=== PATIENT | male | born 1950 | race Caucasian/White ===

== ENCOUNTER 2017-04-30 00:05 | Emergency (ER) | payer BC ==
[~2017-04-30] VITALS: Ht 180.3 cm; Wt 142.5 kg
[~2017-04-30 00:05] MED LIST: ERGOCALCIF50000 UNIT PO; FISH OIL 1,0001 EAC7 PO; HYDROCODON-ACE1 EAC7 PO; JALYN 0.5-0.41 EACH PO; LANSOPRAZOLE15 MG PO; LEVOTHYROXINE25 MCG PO; SAW PALMETTO500 MG PO
[2017-04-30 00:45] LABS: HEMATOCRIT 42.9 % (38.0-50.0); HEMOGLOBIN 14.6 G/DL (12.5-16.6); MCH 31.2 PG (29.0-34.0); MCV 91.7 FL (86-99); PLATELET COUNT 248 K/uL (156-360); RBC DIS.WIDTH-CV 12.7 % (11.8-14.6); RBC DIS.WIDTH-SD 42.7 % (39-53); RED BLOOD COUNT 4.68 M/uL (4.00-5.50); WHITE BLOOD COUNT 6.6 K/uL (4.1-10.2)
[2017-04-30 00:56] LABS: ALBUMIN 4.1 g/dL (3.2-4.8); CHLORIDE 102 mEq/L (99-109); POTASSIUM 4.3 mEq/L (3.7-5.4); SODIUM 136 mEq/L (136-147)
[2017-04-30 00:56] LABS: APPEARANCE CLEAR ((CLEAR)); BILIRUBIN NEGATIVE; BLOOD NEGATIVE; COLOR STRAW ((YELLOW)); GLUCOSE (STRIP) NEGATIVE; KETONES NEGATIVE; LEUKOCYTES NEGATIVE; NITRITE NEGATIVE; PROTEIN (STRIP) NEGATIVE; UCUL ADDED? NO; UROBILINOGEN 0.2 MG/DL (0.2-1.0)
[2017-04-30 00:58] LABS: GLUCOSE 152 mg/dL (70-99); TOTAL PROTEIN 7.2 g/dL (6.4-8.3)
[2017-04-30] MEDS ORDERED: ANUSOL-HC21 GM PR (00:59)
[2017-04-30] MEDS ORDERED: SENNA8.6 MG PO (00:59)
[2017-04-30] MEDS ORDERED: COLACE100 MG PO (00:59)
[2017-04-30 01:00] LABS: TOTAL BILIRUBIN 0.5 mg/dL (0.0-1.0)
[2017-04-30 01:02] LABS: ALKALINE PHOSPHATASE 64 IU/L (3-129); CREATININE 1.1 mg/dL (0.6-1.3); GFR ESTIMATE (CALCULATED) > 59 mL/min/ (58.99-99999)
[2017-04-30 01:03] LABS: UREA NITROGEN (BUN) 18 mg/dL (9-23)
[2017-04-30 01:04] LABS: AST (GOT) 25 IU/L (2-34)
[2017-04-30 01:05] LABS: ALT (GPT) 32 IU/L (3-49)
[2017-04-30 01:20] VITALS: BP 150/82
== END 2017-04-30 01:57 | disposition home or self-care (01) ==
LOC: EME 00:05
PROVIDERS: Emergency Medicine
DX: K64.4 Residual hemorrhoidal skin tags (principal); K62.5 Hemorrhage of anus and rectum; E03.9 Hypothyroidism, unspecified; Z90.49 Acquired absence of other specified parts of digestive tract
CPT/HCPCS: 80053; 81003; 85027; 85610; 99281; 99284